=== PATIENT | male | born 1950 | race Caucasian/White ===

== ENCOUNTER → 2018-07-02 11:09 | Outpatient (CLI) | payer OTHER, SELFPAY ==
--- NOTE | 2018-07-02 11:16 | DI.RAD.S_ITS ---
PROCEDURE: XR WRIST LT MIN 3V INDICATIONS: Fall on L hand (FOOSH) TECHNIQUE: 4 views of the wrist were acquired. COMPARISON: None. FINDINGS: Bones: No dislocations. No suspicious bony lesions. There is a transverse distal radius Colles' fracture slightly impacted and dorsally angulated. Scaphoid view: No trauma to the scaphoid is found. Soft tissues: No suspicious soft tissue calcifications. IMPRESSION: No trauma to the scaphoid is found. Dictated by: Ruben Lopez M.D. on 07/02/2018 at 12:14 Approved by: Ruben Lopez M.D. on 07/02/2018 at 12:15
--- NOTE | 2018-07-02 14:05 | DI.RAD.S_ITS ---
PROCEDURE: XR WRIST LT MIN 3V INDICATIONS: FALL TECHNIQUE: 4 views of the wrist were acquired. COMPARISON: 4 views of the left wrist obtained earlier today were reviewed.. FINDINGS: Bones: No new fractures or dislocations. No suspicious bony lesions. Scaphoid view: No trauma found as was previously the case Soft tissues: No suspicious soft tissue calcifications. IMPRESSION: The appearance of the fracture planes involving the distal radius are little if any changed from the 4 views wrist evaluation obtained only several hours ago. Perhaps an attempt at reduction of fracture angulation has been performed. A definite change in alignment is not found. Please refer to prior report from today. Dictated by: Ruben Lopez M.D. on 07/02/2018 at 14:21 Approved by: Ruben Lopez M.D. on 07/02/2018 at 14:23
== END ==
PROVIDERS: Visit Provider Physician Assistant
DX: S52.532A Colles' fracture of left radius, initial encounter for closed fracture (principal); M25.532 Pain in left wrist
CPT/HCPCS: 73110

== ENCOUNTER → 2021-07-20 08:33 | Outpatient (CLI) | payer OTHER, SELFPAY ==
[2021-07-20 11:46] LABS: Estimated Glomerular Filt Rate > 60.0 mL/min (>60); HEMOLYSIS < 15 (0-50)
== END ==
PROVIDERS: PCP Internal Medicine; Referring Provider Internal Medicine; Visit Provider Internal Medicine
DX: Z51.81 Encounter for therapeutic drug level monitoring (principal)
CPT/HCPCS: 36415; 82565; 84132